=== PATIENT | female | born 1980 | race Caucasian/White ===

== ENCOUNTER 2020-11-04 12:54 | Outpatient (REF) | payer OTHER, SELFPAY ==
[2020-11-05 13:22] LABS: C. trachomatis RNA TMA NOT DETECTED (NOT DETECTED); N. gonorrhoeae RNA TMA NOT DETECTED (NOT DETECTED)
== END 2020-11-04 12:55 | disposition home or self-care (01) ==
LOC: HO.LAB 12:54
PROVIDERS: Visit Provider Advanced Practice Midwife
DX: Z01.419 Encounter for gynecological examination (general) (routine) without abnormal findings (principal); Z72.0 Tobacco use
CPT/HCPCS: 36415; 87491; 87591

== ENCOUNTER 2021-12-04 08:42 | Outpatient (REF) | payer OTHER, SELFPAY ==
[2021-12-04 18:08] LABS: CT PCR NOT DETECTED (Not Detect.); NG PCR NOT DETECTED (Not Detect.)
[2021-12-05 15:21] LABS: BV Int Neg Control Negative (Negative); BV Int Pos Control Positive (Positive)
== END 2021-12-04 08:43 | disposition home or self-care (01) ==
LOC: HO.LAB 08:42
PROVIDERS: Visit Provider Advanced Practice Midwife
DX: Z01.411 Encounter for gynecological examination (general) (routine) with abnormal findings (principal); Z20.2 Contact with and (suspected) exposure to infections with a predominantly sexual mode of transmission; N92.6 Irregular menstruation, unspecified
CPT/HCPCS: 87480; 87491; 87510; 87591; 87660

== ENCOUNTER 2022-01-25 11:30 | Outpatient (REF) | payer OTHER, SELFPAY ==
--- NOTE | ~2022-01-25 | MM_ITS ---
EXAMINATION: MM SCREENING DIGITAL BREAST TOMOSYNTHESIS, BILATERAL CLINICAL INFORMATION: Screening. Asymptomatic. The lifetime risk of breast cancer based on the Tyrer-Cuzick Model is 17.6%. COMPARISON: Mammography: 12/29/2018. TECHNIQUE: Digital breast tomosynthesis is performed in both the craniocaudal and mediolateral oblique views along with computer-aided detection (CAD). Synthesized 2D images are generated from the tomosynthesis. FINDINGS: The breasts are heterogeneously dense, which may obscure small masses (ACR BI-RADS breast composition Category c). There is a stable parenchymal pattern of the left breast with no new abnormal dominant mass or suspicious grouping of microcalcifications. About the superior aspect of the right breast, approximately 3 cm from the nipple, there is a density which may represent superimposition of fibroglandular tissue. There is a question of a few associated calcifications; however, these may be vascular in nature. Recommend spot magnification view in mediolateral oblique projection as well as 90-degree mediolateral view of the right breast. I do not see a similar lesion on craniocaudal view. MM/MM tomosynthesis screening BI IMPRESSION: Question density superior aspect of the right breast for which spot compression view is recommended. ASSESSMENT: BI-RADS 0: Incomplete - Need Additional Imaging Evaluation RECOMMENDATION: 1. Additional views of the right breast. 2. Targeted ultrasound if warranted after review of the additional views. 3. Radiology department staff will contact the patient for additional imaging. This patient's information was entered into a reminder system with a target due date for their next mammogram.
== END 2022-01-25 11:31 | disposition home or self-care (01) ==
LOC: HO.MAMMO 11:30
PROVIDERS: PCP Family Medicine; Visit Provider Advanced Practice Midwife
DX: Z12.31 Encounter for screening mammogram for malignant neoplasm of breast (principal)
CPT/HCPCS: 77063; 77067

== ENCOUNTER 2022-02-08 10:43 | Outpatient (REF) | payer OTHER, SELFPAY ==
--- NOTE | ~2022-02-08 | MM_ITS ---
EXAMINATION: MM DIAGNOSTIC DIGITAL MAMMOGRAPHY, RIGHT US TARGETED RIGHT BREAST ULTRASOUND CLINICAL INFORMATION: Callback for question density with calcifications upper outer aspect of the right breast. COMPARISON: Mammography: 01/25/2022 and 12/29/2018. TECHNIQUE: Digital mammography is performed in spot magnification 90-degree mediolateral and mediolateral oblique views. Targeted right breast ultrasound upper outer aspect. FINDINGS: There are scattered areas of fibroglandular density (ACR BI-RADS breast composition Category b). MAMMOGRAM: No mass containing calcifications was identified. On 90-degree mediolateral view, there is question of a new density but which is shown to represent superimposition of fibroglandular tissue on spot compression mediolateral oblique projection. ULTRASOUND: Targeted right breast ultrasound to the upper outer aspect was performed. No new abnormal cystic or solid mass was identified. No region of abnormal distal sound shadowing. Results are discussed with the patient at time of visit. MM/MM diagnostic mammo unilat RT IMPRESSION: No mammographic or ultrasound evidence of malignancy. ASSESSMENT: BI-RADS 1: Negative. RECOMMENDATION: Routine annual mammography screening. This patient's information was entered into a reminder system with a target due date for their next mammogram.
--- NOTE | ~2022-02-08 | US_ITS ---
EXAMINATION: US DIAGNOSTIC ULTRASOUND BREAST, RIGHT CLINICAL INFORMATION: Question irregular marginated mass within the upper outer aspect of the right breast.. COMPARISON: Mammography of same day and December 29, 2018. TECHNIQUE: Ultrasound of the breast is performed with real-time dumont scale imaging and color Doppler. FINDINGS: There is no focal suspicious finding. There is no solid mass, architectural abnormality, duct ectasia, or edema in the soft tissue planes. Results are discussed with the patient at time of visit. US/US breast RT limited IMPRESSION: No suspicious ultrasound findings upper-outer aspect of the right breast ASSESSMENT: BI-RADS 1: Negative RECOMMENDATION: Routine annual mammography screening due in 12 months. This patient's information was entered into a reminder system with a target due date for their next mammogram.
== END 2022-02-08 10:44 | disposition home or self-care (01) ==
LOC: HO.MAMMO 10:43
PROVIDERS: Visit Provider Family Medicine
DX: R92.2 Inconclusive mammogram (principal)
CPT/HCPCS: 76642; 77062; 77065

== ENCOUNTER 2023-01-31 12:03 | Outpatient (REF) | payer OTHER, SELFPAY ==
--- NOTE | ~2023-01-31 | MM_ITS ---
EXAMINATION: MM SCREENING DIGITAL BREAST TOMOSYNTHESIS, BILATERAL CLINICAL INFORMATION: Screening. Asymptomatic. The lifetime risk of breast cancer based on the Tyrer-Cuzick Model is 18%. COMPARISON: Mammography: 02/08/2022, 01/25/2022, 12/29/2018, left breast ultrasound 12/29/2018 TECHNIQUE: Digital breast tomosynthesis is performed in both the craniocaudal and mediolateral oblique views along with computer-aided detection (CAD). Synthesized 2D images are generated from the tomosynthesis. FINDINGS: There are scattered areas of fibroglandular density (ACR BI-RADS breast composition Category b). There are no significant masses, abnormal calcifications, or other abnormalities. Parenchymal pattern is similar to prior studies. There is no developing density or architectural abnormality. The axilla and skin contours are unremarkable. No significant changes. MM/MM tomosynthesis screening BI IMPRESSION: No mammographic evidence of malignancy. ASSESSMENT: BI-RADS 1: Negative RECOMMENDATION: Routine annual mammography screening. This patient's information was entered into a reminder system with a target due date for their next mammogram.
== END 2023-01-31 12:04 | disposition home or self-care (01) ==
LOC: HO.MAMMO 12:03
PROVIDERS: PCP Family Medicine; Visit Provider Family Medicine
DX: Z12.31 Encounter for screening mammogram for malignant neoplasm of breast (principal)
CPT/HCPCS: 77063; 77067

== ENCOUNTER 2023-04-05 08:23 | Outpatient (AMB) | payer OTHER, SELFPAY ==
--- NOTE | 2023-04-05 08:26 | A.OFFVIS_ITS ---
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 Scribed for REMY Mcarthur by Sarah Carrasco medical sales representative, on 04/05/2023 at 8:30 am EST Sap Functional Analyst Required: No Information Interpreted: non-clinical & clinical General Education Professor: General Education Professor Present (Juana Tab HOLCOMB) Accompanied by: Self / Same As Patient Allergies No Known Allergies Allergy (Verified 04/05/23 08:33) Is last menstrual period known: Yes Last menstrual period: 03/20/23 HPI HPI Comments History of Present Illness Details She is a premenopausal woman presenting for annual exam. Doing well with no obstetrics/gynecology nurse concerns. She attempts to eat healthy and stay active. Currently sexually active. Uses withdraw method for BC. Regular monthly periods. Denies vaginal itching and irritation. STD screening offered; she declines. Last pap smear 2018. Last mammogram 01/31/23. 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 Sexual orientation: Straight/Heterosexual Gender identity: Female Female Reproductive History Menstrual Age of Menarche: 13 Date of last menstrual period: 03/20/23 Total pregnancies: 4 Full term: 1 Number of Living Children: 1 Ab induced: 1 Ab spontaneous: 2 Date of last pap smear: 12/12/18 Date of Mammogram: 01/31/23 Review of Systems Const All systems reviewed & are unremarkable except as noted in HPI and below Physical Exam Vital Signs: Last Vital Signs BP 110/60 04/05/23 08:32 BMI result Body Mass Index 20.6 Const General: cooperative, healthy appearing, no acute distress, well developed and alert Orientation/consciousness: patient oriented x3 HEENT Head: Yes normal to inspection Eyes General: appearance normal, both eyes and all related structures Neck Neck: Yes normal visual inspection Thyroid: Thyroid normal Chest Chest palpation & inspection: normal inspection of the chest Breast/axilla inspection: normal inspection of the breasts (no puckering, dimpling, peau de orange, retraction, discharge, masses) Breast/axilla palpation: normal palpation of the breasts Resp Effort & Inspection: normal respiratory effort GI Inspection: Yes normal to inspection Palpation (GI): Soft to palpation Rectal Exam - Female: deferred General: Yes bladder normal to palpation External Female Exam: normal external appearance and normal appearance of the urethra Speculum Exam - Vagina: normal appearance of the vagina, normal palpation and normal vaginal discharge Speculum Exam - Cervix: normal appearance of the cervix and normal palpation Bimanual exam- vagina & uterus: normal bimanual exam, normal palpation, uterine size normal, bladder normal to palpation and normal palpation Bimanual Exam- Adnexa, other: normal adnexae and no masses Skin General skin exam: no rashes or lesions noted Neuro General: patient oriented x3 Cognition (Neuro): normal cognition Extrem General: Yes normal to inspection Psych Attitude: cooperative Thought process: Normal thought process present Assessment & Plan Assessment & Plan (1) Encounter for well woman exam: Code(s): Z01.419 - Encounter for gynecological examination (general) (routine) without abnormal findings Plan: Discussed: Current recommendations for pap smears per ASCCP guidelines. Breast awareness and periodic self breast exams. Encouraged yearly mammograms. Maintaining a healthy lifestyle including a well balanced diet and routine exercise. All of her questions and concerns were addressed to the best of my ability. RTO in one year for AG. Coding Level of Care Code Est Pt Prev Care 40-64y(02680) Diagnoses Encounter for well woman exam Z01.419
[2023-04-05 08:32] VITALS: BP 110/60; BMI 20.6
== END 2023-04-05 08:49 | disposition home or self-care (01) ==
LOC: HO.HWS 08:23
PROVIDERS: PCP Family Medicine; Visit Provider Advanced Practice Midwife
DX: Z01.419 Encounter for gynecological examination (general) (routine) without abnormal findings (principal)
CPT/HCPCS: 99396

== ENCOUNTER → 2023-04-05 08:23 | Outpatient (BNVA) | payer OTHER, SELFPAY | PROVIDERS: PCP Family Medicine; Visit Provider Advanced Practice Midwife ==

== ENCOUNTER 2024-02-03 07:23 | Outpatient (REF) | payer OTHER, SELFPAY | END 2024-02-03 07:24 | disposition home or self-care (01) | LOC: HO.MAMMO 07:23 | PROVIDERS: PCP Family Medicine; Visit Provider Family Medicine | DX: Z12.31 Encounter for screening mammogram for malignant neoplasm of breast (principal) | CPT/HCPCS: 77063; 77067 ==

== ENCOUNTER → 2024-02-03 07:30 | Outpatient (BNV) | payer MEDICAID, SELFPAY | PROVIDERS: PCP Family Medicine; Visit Provider Radiology Diagnostic Radiology | DX: Z12.31 Encounter for screening mammogram for malignant neoplasm of breast (principal) | CPT/HCPCS: 77063; 77067 ==

== ENCOUNTER 2024-06-03 07:42 | Outpatient (REF) | payer OTHER, SELFPAY | END 2024-06-03 07:43 | disposition home or self-care (01) | LOC: HO.LNP 07:42 | PROVIDERS: PCP Family Medicine; Visit Provider Advanced Practice Midwife | DX: Z01.419 Encounter for gynecological examination (general) (routine) without abnormal findings (principal) | CPT/HCPCS: 87625; 88175; 99396 ==

== ENCOUNTER 2024-06-03 07:42 | Outpatient (AMB) | payer OTHER, SELFPAY ==
--- NOTE | 2024-06-03 07:49 | A.OFFVIS_ITS ---
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 Doing well with no concerns. She tries to eat healthy and stays active with exercise w/walking. Regular monthly menses, uses withdrawal method. She denies vaginal itching and irritation. STI screening offered; she declined. Denies family history of ovarian or colon cancer. Family history of breast cancer. Last pap smear 2018, negative. Mammogram: 2023. 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 Sexual orientation: Straight/Heterosexual Gender identity: Female Female Reproductive History Menstrual Age of Menarche: 13 Date of last menstrual period: 05/19/24 Total pregnancies: 4 Full term: 1 Number of Living Children: 1 Ab induced: 1 Ab spontaneous: 2 History of abnormal pap smear: Yes (2003) Assessment & Plan Assessment & Plan () Encounter for well woman exam with routine gynecological exam: Code(s): Z01.419 - Encounter for gynecological examination (general) (routine) without abnormal findings Category: Medical Plan Discussed: Current recommendations for pap smears per ASCCP guidelines. Pap obtained Breast awareness and periodic breast exams. Maintain a healthy lifestyle including a well balanced diet and routine exercise. Mammogram yearly. Colonoscopy >45, or at risk sooner. Patient verbalizes understanding and agrees to the plan of care. She was given opportunity to ask questions and all questions were answered to the best of my ability. RTO in one year for annual sole leather cutting machine operator examination. This note is constructed using voice recognition software. While every effort has been made to ensure accuracy, form setter metal road forms errors may have been included. Coding Level of Care Code Est Pt Prev Care 40-64y(91359) Diagnoses Encounter for well woman exam with routine gynecological exam Z01.419
[2024-06-03 07:53] VITALS: BP 112/62; BMI 25.4
== END 2024-06-03 08:30 | disposition home or self-care (01) ==
PROVIDERS: PCP Family Medicine; Visit Provider Advanced Practice Midwife
DX: Z01.419 Encounter for gynecological examination (general) (routine) without abnormal findings (principal)
CPT/HCPCS: 99396

== ENCOUNTER 2024-09-08 08:00 | Outpatient (AMB) | payer OTHER, SELFPAY ==
--- NOTE | 2024-09-08 08:12 | MHC.OFFVIS ---
Vital Signs 09/08/24 08:15 Height 5 ft 4 in Weight 147 lb BMI 25.2 BP 90/60 Intake Visit Reasons: Repeat pap for HPV testing Intake Note: Patient here for repeat pap Lead C Developer Required: No Information Interpreted: non-clinical & clinical Looper Fixer: Looper Fixer Present Accompanied by: Self / Same As Patient Allergies No Known Allergies Allergy (Verified 09/08/24 08:17) Is last menstrual period known: Yes Last menstrual period: 09/02/24 HPI Comments Details: Is here today for a repeat HPV testing previous Pap in June HPV status was not obtained. She has no software developer mid level concerns today. 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 Sexual orientation: Straight/Heterosexual Gender identity: Female Female Reproductive History Menstrual Age of Menarche: 13 Date of last menstrual period: 09/02/24 Review of Systems Const All systems reviewed & are unremarkable except as noted in HPI and below Physical Exam Vital Signs: Last Vital Signs BP 90/60 09/08/24 08:15 BMI result Body Mass Index 25.2 Const General: cooperative, healthy appearing and no acute distress Orientation/consciousness: patient oriented x3 GI Inspection: Yes normal to inspection Palpation (GI): Soft to palpation and Other GI palpation findings present (Nontender) Rectal Exam - Female: visual inspection normal General: Yes bladder normal to palpation External Female Exam: normal appearance of the urethra Speculum Exam - Vagina: normal appearance of the vagina, normal palpation and normal vaginal discharge Speculum Exam - Cervix: normal appearance of the cervix and normal palpation Bimanual exam- vagina & uterus: normal bimanual exam, normal palpation, uterine size normal, bladder normal to palpation, normal palpation, uterine shape normal and non-tender Bimanual Exam- Adnexa, other: normal adnexae Neuro General: patient oriented x3 Assessment & Plan Assessment & Plan (1) Unsatisfactory cervical Papanicolaou smear: Code(s): R87.615 - Unsatisfactory cytologic smear of cervix Plan Plan: Pap smear obtained. Await results for plan of care. Mammogram is scheduled and software developer mid level exam booked for 2024. The patient expressed understanding and agreement with the plan of care. All of her questions and concerns were addressed to the best of my ability. This note is constructed using voice recognition software. While every effort has been made to ensure accuracy, wafer fabricator errors may have been included. Coding Level of Care Code Est Pt Level 2 (47882) Diagnoses Unsatisfactory cervical Papanicolaou smear R87.615
[2024-09-08 08:15] VITALS: BP 90/60; BMI 25.2
== END 2024-09-08 08:32 | disposition home or self-care (01) ==
LOC: HO.HWS 08:00
PROVIDERS: PCP Family Medicine; Visit Provider Advanced Practice Midwife
DX: R87.615 Unsatisfactory cytologic smear of cervix (principal)
CPT/HCPCS: 99212; 99459

== ENCOUNTER 2024-09-08 08:00 | Outpatient (REF) | payer OTHER, SELFPAY ==
[2024-09-09 11:13] LABS: HPV 16,18/45 See PAP report
== END 2024-09-08 08:01 | disposition home or self-care (01) ==
LOC: HO.LNP 08:00
PROVIDERS: PCP Family Medicine; Visit Provider Advanced Practice Midwife
DX: R87.615 Unsatisfactory cytologic smear of cervix (principal); Z11.51 Encounter for screening for human papillomavirus (HPV)
CPT/HCPCS: 87626; 88175; 99212; 99459

== ENCOUNTER 2025-05-24 15:48 | Outpatient (REF) | payer OTHER, SELFPAY ==
--- NOTE | ~2025-05-24 | MM_ITS ---
EXAMINATION: MM SCREENING DIGITAL BREAST TOMOSYNTHESIS, BILATERAL CLINICAL INFORMATION: Screening. Asymptomatic. COMPARISON: Comparison made to multiple prior, most recent February 03, 2024, and most remote December 29, 2018. TECHNIQUE: Digital breast tomosynthesis is performed in mediolateral oblique and craniocaudal views along with computer-aided detection (CAD). Synthesized 2D images are generated from the tomosynthesis. FINDINGS: BREAST COMPOSITION: The breasts are heterogeneously dense, which may obscure small masses. BILATERAL BREASTS: No significant masses, suspicious calcifications or other abnormalities are seen in either breast. MM/MM tomosynthesis screening BI IMPRESSION: BILATERAL BREASTS: Negative, no mammographic evidence of malignancy. Normal interval follow-up is recommended in 12 months ASSESSMENT: BI-RADS: Category 1: Negative RECOMMENDATION: Routine annual mammography screening. FOLLOW-UP: 1 year F/U This examination should not preclude the clinical evaluation of a suspicious palpable abnormality. This patient's information was entered into a reminder system with a target due date for their next mammogram. Electronically signed by: Alicia Lockhart MD 05/25/2025 07:51 PM EDT
--- OUTSIDE RECORDS SUMMARY | 2025-05-24 18:01 | XMS_ITS ---
Encounter Summary Created on: May 24, 2025 Kavitha Salvador : 1980
== END 2025-05-24 15:49 | disposition home or self-care (01) ==
LOC: HO.MAMMO 15:48
PROVIDERS: PCP Family Medicine; Visit Provider Family Medicine
DX: Z12.31 Encounter for screening mammogram for malignant neoplasm of breast (principal)
CPT/HCPCS: 77063; 77067

== ENCOUNTER → 2025-05-24 16:00 | Outpatient (BNV) | payer OTHER, SELFPAY | PROVIDERS: PCP Family Medicine; Visit Provider Radiology Body Imaging | DX: Z12.31 Encounter for screening mammogram for malignant neoplasm of breast (principal) | CPT/HCPCS: 77063; 77067 ==

== ENCOUNTER 2025-07-07 09:27 | Outpatient (AMB) | payer OTHER, SELFPAY ==
--- NOTE | 2025-07-07 09:29 | A.OFFVIS_ITS ---
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 Menses q 22-23d (always since teens), x3-5d. Reports off in March when she was under stress. Currently is not sexually active after 16 yr. relationship. She denies vaginal itching or irritation. STI screening offered; she accepts. She tries to eat healthy and stays active with exercise. Denies family history of breast, ovarian or colon cancer. Last pap smear 2024, negative. Mammogram: 2024. 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 Sexual orientation: Straight/Heterosexual Gender identity: Female Female Reproductive History Menstrual Age of Menarche: 13 Date of last menstrual period: 06/16/25 Total pregnancies: 4 Full term: 1 Ab induced: 1 Ab spontaneous: 2 Date of last pap smear: 09/08/24 (neg pap and hpv, 06/03/24 neg pap no hpv done) History of abnormal pap smear: Yes (hx abn 2003) Date of Mammogram: 05/24/25 (Birad 1) Review of Systems Const All systems reviewed & are unremarkable except as noted in HPI and below Reports as per HPI Eyes Reports no additional complaints ENT Reports no additional complaints Card Reports no additional complaints Resp Reports no additional complaints GI Reports as per HPI and Reports no additional complaints Reports as per HPI Musc Reports no additional complaints Skin/Breast Reports as per HPI Neuro Reports no additional complaints Psych Reports no additional complaints Endo Reports no additional complaints Quique/Lymph Reports no additional complaints Aller/Immun Reports no additional complaints Physical Exam Vital Signs: Last Vital Signs BP 94/56 L 07/07/25 09:31 BMI result Body Mass Index 20.3 Const General: cooperative, healthy appearing, no acute distress, well developed and alert Orientation/consciousness: patient oriented x3 HEENT Head: Yes normal to inspection Eyes General: appearance normal, both eyes and all related structures Neck Neck: Yes normal visual inspection Thyroid: Thyroid normal Chest Chest palpation & inspection: normal inspection of the chest and other (no puckering, dimpling, peau de orange, retraction, discharge, masses) Breast/axilla inspection: normal inspection of the breasts Breast/axilla palpation: normal palpation of the breasts Resp Effort & Inspection: normal respiratory effort GI Inspection: Yes normal to inspection Palpation (GI): Soft to palpation Rectal Exam - Female: deferred General: Yes bladder normal to palpation External Female Exam: normal external appearance and normal appearance of the urethra Speculum Exam - Vagina: normal appearance of the vagina, normal palpation and normal vaginal discharge Speculum Exam - Cervix: normal appearance of the cervix and normal palpation Bimanual exam- vagina & uterus: normal bimanual exam, normal palpation, uterine size normal, bladder normal to palpation, normal palpation and non-tender Bimanual Exam- Adnexa, other: no masses Skin General skin exam: no rashes or lesions noted Rashes: no rashes Neuro General: patient oriented x3 Cognition (Neuro): normal cognition Extrem General: Yes normal to inspection Psych Attitude: cooperative Thought process: Normal thought process present Assessment & Plan Assessment & Plan (1) Encounter for well woman exam with routine gynecological exam: Code(s): Z01.419 - Encounter for gynecological examination (general) (routine) without abnormal findings Category: Medical Plan: Discussed: Current recommendations for pap smears per ASCCP guidelines. Breast awareness and periodic breast exams. Mammogram yearly. Maintain a healthy lifestyle including a well balanced diet and routine exercise. Use condoms for STI and prevention. Perimenopause. Website resources provided. Patient verbalizes understanding and agrees to the plan of care. She was given opportunity to ask questions and all questions were answered to the best of my ability. 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 This note is constructed using voice recognition software. While every effort has been made to ensure accuracy, supervisor water softener service errors may have been included. (2) Irregular menses: Code(s): N92.6 - Irregular menstruation, unspecified Category: Medical Plan Workup to include cervical cultures, pelvic ultrasound, follow up in person for results. Monitor menstrual cycles, report any unscheduled bleeding, bleeding episodes <24 days apart or heavy/prolonged menstrual bleeding. Call the office for a follow up for any concerns. This note is constructed using voice recognition software. While every effort has been made to ensure accuracy, supervisor water softener service errors may have been included. Orders: Orders Hepatitis C Antibody Reflex Today Z20.2 - Contact with and (suspected) exposure to infections with a predominantly sexual mode of transmission Syphilis Screen Today Z20.2 - Contact with and (suspected) exposure to infections with a predominantly sexual mode of transmission HIV Ab/Ag Today Z20.2 - Contact with and (suspected) exposure to infections with a predominantly sexual mode of transmission Hepatitis B Core Antibody Today Z20.2 - Contact with and (suspected) exposure to infections with a predominantly sexual mode of transmission Complete Blood Count no Diff Today N92.6 - Irregular menstruation, unspecified Thyroid Stimulating Hormone Today N92.1 - Excessive and frequent menstruation with irregular cycle US pelvic and transvaginal Today N92.6 - Irregular menstruation, unspecified Bacterial Vaginosis Panel Today Z20.2 - Contact with and (suspected) exposure to infections with a predominantly sexual mode of transmission CT NG by PCR Vag/Cerv Today Z20.2 - Contact with and (suspected) exposure to infections with a predominantly sexual mode of transmission Coding Level of Care Code Est Pt Prev Care 40-64y(61139) Diagnoses Encounter for well woman exam with routine gynecological exam Z01.419 Irregular menses N92.6
[2025-07-07 09:31] VITALS: BP 94/56; BMI 20.3
--- OUTSIDE RECORDS SUMMARY | 2025-07-07 10:33 | XMS_ITS | Encounter Summary ---
Author Organization [facility] Address [address] [facility] [address] [place] [address] Phone Care Team Providers Care Toll Service Observer Name Role Phone Pcp, Not Required Primary Care Provider Unavaila ble Encounter Details Date Type Department Care Team (Late st Contact Info) Description 02/19/2019 Ancillary Orders [facility], X-Ray - [address] [place] [address] Alyx Yo, SAAD [address] [facility], [address] [place] [address] [email or web address] Crush injury, wrist, left, initial encounter; Pain and swelling of wrist, left; Pain of left forearm Social History Tobacco Use Types Packs/Day Years Used Date Smoking Tobacco: Never Assessed Comments Unknown Sex and Gender Information Value Date Recorded Sex Assigned at Not on file Legal Sex Female 10:29 PM EDT Gender Identity Not on file Sexual Orientation Not on file documented as of this encounter Plan of Treatment Not on file documented as of this encounter Results * XR WRIST 3 OR MORE VIEWS (LEFT) (02/19/2019 9:16 AM EDT) Anatomical Region Laterality Modality Wrist Left Radiographic Yancy ging 02/19/2019 10:0 2 AM EDT Impressions 02/19/2019 10:04 AM EDT Bowed appearance to the ulna is probably related to old injury or developmental. No acute fracture or malalignment is detected. POS - [id number] Narrative 02/19/2019 10:04 AM EDT Left wrist 5 views. No prior. No fracture is identified. There is ulna plus variance. There is some bowing of the ulna but patient this age this is unlikely to represent a plastic deformity in the appearance of the cortex dorsally suggests that this may be a chronic finding. Procedure Note Yun Stearns MD - 02/19/2019 Left wrist 5 views. No prior. No fracture is identified. There is ulnaplus variance. There is some bowing of the ulna but patient this age thisis unlikely to represent a plastic deformity in the appearance of thecortex dorsally suggests that this may be a chronic finding. IMPRESSION: Bowed appearance to the ulna is probably related to old injury ordevelopmental. No acute fracture or malalignment is detected. POS - [id number] Alyx Yo PA-C IMG XR UPPER EXTREMITY Final Result * XR Forearm 2 Views (Left) (02/19/2019 9:16 AM EDT) Anatomical Region Laterality Modality Forearm Left Radiographic Yancy ging 02/19/2019 10:0 2 AM EDT Addenda Addendum by Yun Stearns MD on 03/15/2019 4:10 PM EDT AP and lateral views >> LEFT << forearm. No prior. No fracture or bony lesion identified. IMPRESSION: No fracture seen. POS - [id number] Edited by: Fela Saavedra on 03/15/2019 4:08 PM Impressions 02/19/2019 10:02 AM EDT No fracture seen. POS - [id number] Narrative 02/19/2019 10:02 AM EDT AP and lateral views right forearm. No prior. No fracture or bony lesion identified. Procedure Note Yun Stearns MD - 02/19/2019 AP and lateral views right forearm. No prior. No fracture or bony lesionidentified. IMPRESSION: No fracture seen. POS - [id number] Alyx Yo PA-C IMG XR UPPER EXTREMITY Edite d Result - Final documented in this encounter Visit Diagnoses Diagnosis Crush injury, wrist, left, initial encounter Pain and swelling of wrist, left Pain of left forearm Crush injury, wrist, left, initial encounter Pain and swelling of wrist, left Pain of left forearm Crush injury, wrist, left, initial encounter Pain and swelling of wrist, left documented in this encounter Care Teams Toll Service Observer Relationship Specialty Start Date End Date Pcp, Not Required [address] [place] [address] PCP - General 02/19/19 documented as of this encounter Additional Source Comments The information contained in this document represents components of the legal health record. It is not the complete legal health record.[facility]
--- OUTSIDE RECORDS SUMMARY | 2025-07-07 10:33 | XMS_ITS | Encounter Summary ---
Author Organization [employer] Address [address] [facility] 7 [place] [address] Care Team Providers Care Felt Hanger Name Role Phone Unavailable Primary Care Provider Unavailabl e Encounter Details Date Type Department Care Team (Latest Contact Info) Description 05/12/2021 Abstract [facility] CONVERSION[facility] Dental, Provider, DDS Social History Tobacco Use Types Packs/Day Years Used Date Smoking Tobacco: Never Assessed Comments Unknown Sex and Gender Information Value Date Recorded Sex Assigned at Female 10/31/2022 4:05 PM EST Legal Sex Female 5:36 PM EDT Gender Identity Female 10/31/2022 4:05 PM EST Sexual Orientation Choose not to disclose 2022 4:05 PM EST documented as of this encounter Plan of Treatment Upcoming Encounters Date Type Department Care Team (Late st Contact Info) Description 11/02/2025 12:00 PM EST Office Visit [facility] DENTAL [address] [place] [address] Portia Miller documented as of this encounter Visit Diagnoses Not on filedocumented in this encounter
--- OUTSIDE RECORDS SUMMARY | 2025-07-07 10:33 | XMS_ITS | Clinical Summary ---
Author Organization [email or web address] 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) from Last 3 Months Social History Tobacco Use Types Packs/Day Years Used Date Smoking Tobacco: Some Days Cigarettes Smokeless Tobacco: Never Tobacco Cessation:Ready to Q uit: Not Asked; Counseling Given: Not Answered Alcohol Use Standard Drinks/Week Comments Yes 0 (1 standard drink = 0.6 oz pur e alcohol) Comments Unknown Sex and Gender Information Value Date Recorded Sex Assigned at Female 10/31/2022 4:05 PM EST Legal Sex Female 5:36 PM EDT Gender Identity Female 10/31/2022 4:05 PM EST Sexual Orientation Choose not to disclose 2022 4:05 PM EST Plan of Treatment Upcoming Encounters Date Type Department Care Team (Late st Contact Info) Description 11/02/2025 12:00 PM EST Office Visit [facility] DENTAL [address] [place] [address] Portia Miller Health Maintenance Due Date Last Done Comments Depression Screening 1981 HIV Screening 1981 Lipid Panel 1981 SDOH Screening 1981 Disability Screening 1981 Alcohol/Substance Use Screening 1993 Family Planning (PISQ) 1996 HPV Vaccines (1 - 3-dose series) 1996 Hepatitis C Screening 1999 Hepatitis B Vaccines (1 of 3 - 19+ 3-dose series) 2000 Pneumococcal Vaccine: Pediatrics (0 to 5 Years) and At-Risk Patients (6 to 49) Years (1 of 2 - PCV) 2000 Pap Smear 2002 Cervical Cancer Screening 2011 HPV/Cotest 2011 DTaP/Tdap/Td Vaccines (2 - Td or Tdap) 02/03/2020 02/02/2010 Mammogram 2021 COVID-19 Vaccine (3 - 2024- season) 2025 04/20/2021, 03/19/2021 Influenza Vaccine (#1) 2025 Dental X-Ray: Full Mouth 05/23/2025 05/22/2022, 1001/2010 Tobacco Screening 09/10/2025 09/10/2024 Dental Oral Exam 10/31/2025 04/29/2025, 05/2025, 01/02/2024, Additional history exists Dental Prophylaxis 10/31/2025 04/29/2025, 0 09/10/2024, 01/02/2024, Additional history exists Dental X-Ray: Bitewings 04/30/2026 04/29/20 25, 01/02/2024, 05/22/2022, Additional history exists Zoster Vaccines (1 of 2) 2031 RSV Patients and Patients Aged 60 years or older (1 - 1-dose 75+ series) 2056 HIB Vaccines Aged Out No longer eligi ble based on patient's age to complete this topic Hepatitis A Vaccines Aged Out No long er eligible based on patient's age to complete this topic IPV Vaccines Aged Out No longer eligi ble based on patient's age to complete this topic Meningococcal B Vaccine Aged Out No l onger eligible based on patient's age to complete this topic Meningococcal Vaccine Aged Out No kelly alisia eligible based on patient's age to complete this topic RSV under 20 months Aged Out No longe r eligible based on patient's age to complete this topic Rotavirus Vaccines Aged Out No longer eligible based on patient's age to complete this topic Procedures Procedure Name Priority Date/Time Associated Diagnosis Comments CASE PRESENTATION, DETAILED AND EXTENSIVE TREATMENT PLANNING Routine 04/29/2025 8:30 AM EDT BITEWINGS - 4 RADIOGRAPHIC IMAGES Routine 04/29/2025 8:30 AM EDT Full PROPHYLAXIS - ADULT Routine 025 8:30 AM EDT PERIODIC ORAL EVALUATION - ESTABLISHED PATIENT Routine 04/29/2025 8:30 AM EDT INTRAORAL - COMPLETE SERIES OF RADIOGRAPHIC IMAGES Routine 05/22/2022 12:00 AM EDT from Last 3 Months or Most Recently Relevant to Health Maintenance Insurance DENTAL-[facility] MEDICAID STAND ADULT DENTAL - HSN FULL (MEDICAID)
--- OUTSIDE RECORDS SUMMARY | 2025-07-07 10:33 | XMS_ITS | Encounter Summary ---
Author Organization [facility] Address [address] [facility] [address] [place] [address] Phone Care Team Providers Care Dietitian Teacher Name Role Phone Pcp, Not Required Primary Care Provider Unavaila ble Encounter Details Date Type Department Care Team (Late st Contact Info) Description 02/19/2019 Ancillary Orders [facility] at [address] [address] Alyx Yo, SAAD [address] [place] [address], [address] [place] [address] [email or web address] Social History Tobacco Use Types Packs/Day Years Used Date Smoking Tobacco: Never Assessed Comments Unknown Sex and Gender Information Value Date Recorded Sex Assigned at Not on file Legal Sex Female 10:29 PM EDT Gender Identity Not on file Sexual Orientation Not on file documented as of this encounter Plan of Treatment Not on file documented as of this encounter Visit Diagnoses Not on filedocumented in this encounter Care Teams Dietitian Teacher Relationship Specialty Start Date End Date Pcp, Not Required [address] [place] [id number] PCP - General 02/19/19 documented as of this encounter Additional Source Comments The information contained in this document represents components of the legal health record. It is not the complete legal health record.[facility]
--- OUTSIDE RECORDS SUMMARY | 2025-07-07 10:33 | XMS_ITS | Encounter Summary ---
Author Organization [employer] Address [address] [facility] 7 [place] [address] Care Team Providers Care Die Repairer Trimmer Dies Name Role Phone Unavailable Primary Care Provider Unavailabl e Encounter Details Date Type Department Care Team (Latest Contact Info) Description 09/11/2018 Abstract [facility] CONVERSION[facility] Dental, Provider, DDS Social [...] Description 11/02/2025 12:00 PM EST Office Visit [facility] DENTAL [address] [place] [address] Portia Miller documented as of this encounter Visit Diagnoses Not on filedocumented in this encounter
--- OUTSIDE RECORDS SUMMARY | 2025-07-07 10:33 | XMS_ITS | Clinical Summary ---
Author Organization [facility] Address [address] [place] [address] Phone Care Team Providers Care Certified Dental Assistant Name Role Phone Pcp, Not Required Primary Care Provider Unavaila ble Allergies No known active allergies Medications No known medications Active Problems No known active problems Social History Tobacco Use Types Packs/Day Years Used Date Smoking Tobacco: Every Day Cigarettes 0.3 5 Smokeless Tobacco: Never Alcohol Use Standard Drinks/Week Comments Never 0 (1 standard drink = 0.6 oz pur e alcohol) Education Answer Date Recorded Are you interested in more education? Not on aleksander e 12/28/2022 Are you concerned about learning? Not on file 12/28/2022 No 12/28/2022 No 12/28/2022 Digital Access Answer Date Recorded No 01/26/2023 No 01/26/2023 No 01/26/2023 Reliable internet access at home? Not on file 01/26/2023 Device with a working camera? Not on file Comments Unknown Sex and Gender Information Value Date Recorded Sex Assigned at Not on file Legal Sex Female 10:29 PM EDT Gender Identity Not on file Sexual Orientation Not on file Last Filed Vital Signs Vital Sign Reading Time Taken Comments Blood Pressure 128/70 11/27/2020 1:52 PM EDT Pulse 82 11/27/2020 1:52 PM EDT Temperature 37.6 C (99.6 F) 11/27/2020 1:52 PM EDT Respiratory Rate - - Oxygen Saturation 98% 11/27/2020 1:52 PM EDT Inhaled Oxygen Concentration - - Weight 56.7 kg (125 lb) 11/27/2020 1:52 PM EDT Height 162.6 cm (5' 4 ) 11/27/2020 1:52 PM EDT Body Mass Index 21.46 11/27/2020 1:52 PM EDT Plan of Treatment Health Maintenance Due Date Last Done Comments DEPRESSION SCREENING 1993 SMOKING Hx and SMOKELESS TOBACCO SCREENING 1994 HEPATITIS C SCREENING 1999 HIV ONE-TIME SCREENING (18-6 5 YEARS) 1999 PNEUMOCOCCAL VACCINES (0-49 years) (1 of 2 - PCV) 2000 PAP SMEAR 2002 Adult Td,Tdap Booster 02/03/2020 02/02/2010 MAMMOGRAM 2021 INFLUENZA VACCINE (#1) 2025 COVID-19 VACCINE (2024-2 6 season) 2025 04/20/2021, 03/19/2021 HEPATITIS A VACCINES Aged Out No long er eligible based on patient's age to complete this topic HIB VACCINES Aged Out No longer eligi ble based on patient's age to complete this topic MENINGOCOCCAL VACCINES (ACWY) Aged Out No longer eligible based on patient's age to complete this topic MENINGOCOCCAL VACCINES (B) Aged Out N o longer eligible based on patient's age to complete this topic Medical Devices Not on file Insurance [employer] [facility] [facility] Care Teams Certified Dental Assistant Relationship Specialty Start Date End Date Pcp, Not Required [address] [place] [address] PCP - General 02/19/19 Additional Source Comments The information contained in this document represents components of the legal health record. It is not the complete legal health record.[facility]
== END 2025-07-07 10:24 | disposition home or self-care (01) ==
LOC: HO.HWS 09:28
PROVIDERS: PCP Family Medicine; Visit Provider Advanced Practice Midwife
DX: Z01.419 Encounter for gynecological examination (general) (routine) without abnormal findings (principal); N92.6 Irregular menstruation, unspecified
CPT/HCPCS: 99396; 99459

== ENCOUNTER 2025-07-07 09:27 | Outpatient (REF) | payer OTHER, SELFPAY | END 2025-07-07 09:28 | disposition home or self-care (01) | LOC: HO.LAB 09:27 | PROVIDERS: PCP Family Medicine; Visit Provider Advanced Practice Midwife | DX: Z01.419 Encounter for gynecological examination (general) (routine) without abnormal findings (principal); N92.6 Irregular menstruation, unspecified | CPT/HCPCS: 99396 ==

== ENCOUNTER 2025-07-07 10:19 | Outpatient (REF) | payer OTHER, SELFPAY ==
[2025-07-07 16:46] LABS: Bacterial Vaginosis PCR NEGATIVE (Negative); Candida Group PCR NOT DETECTED (Not Detect); Candida glab krusei PCR NOT DETECTED (Not Detect); Trichomonas vaginalis PCR NOT DETECTED (Not Detect)
[2025-07-07 17:07] LABS: CT PCR NOT DETECTED (Not Detect.); NG PCR NOT DETECTED (Not Detect.)
== END 2025-07-07 10:20 | disposition home or self-care (01) ==
LOC: HO.LNP 10:19
PROVIDERS: Visit Provider Advanced Practice Midwife
DX: Z20.2 Contact with and (suspected) exposure to infections with a predominantly sexual mode of transmission (principal)
CPT/HCPCS: 81515; 87491; 87591